=== PATIENT | female | born 1960 | race Caucasian/White ===

== ENCOUNTER 2023-01-22 02:51 | Outpatient (CLI) | payer OTHER, SELFPAY | END 2023-01-22 02:52 | disposition home or self-care (01) | LOC: AMB 01-24 05:16 | PROVIDERS: Visit Provider Family Medicine | DX: R55 Syncope and collapse (principal) | CPT/HCPCS: A0425; A0427 ==

== ENCOUNTER 2023-09-30 18:46 | Emergency (ER) | payer OTHER, SELFPAY ==
[2023-09-30] VITALS (7 sets, daily range): BP systolic 145–149; BP diastolic 76–88; PULSE 61–78; RESP 18; TEMP 36.9; O2SAT 96–99; BMI 20.2
--- NOTE | 2023-09-30 19:18 | XR_ITS ---
Patient: GRACIELA TRUJILLO Facility:?[facility] Patient ID:?[id number] Site Patient ID:?[id number]. Site :?[id number] Study:?XRay-Chest 2 views-09/30/2023 7:36:17 PM Ordering Physician:Elise Gomez Final Report: INDICATION: Cough TECHNIQUE: Chest 2 views COMPARISON: None FINDINGS: Cardiovascular and mediastinum: Heart size and vasculature are normal in caliber and appearance. Lungs and pleural spaces: Lungs are clear. No sign of infiltrate or mass. No sign of pleural effusion. No pneumothorax. Bones and soft tissues: No significant findings. IMPRESSION: No acute findings. Dictated by Kendall Botello MD @ 10/01/2023 7:01:11 AM Signed by:?Kendall Botello MD @10/01/2023 7:01:11 AM (Electronic Signature)
[2023-09-30 19:39] LABS: Basophils Absolute Auto 0.02 K/uL (0.00-0.30); Basophils Percent Auto 0.3 % (0.0-3.0); Eosinophils Absolute Auto 0.06 K/uL (0.00-0.50); Eosinophils Percent Auto 0.8 % (0.0-7.0); Hematocrit 39.9 % (33.0-51.0); Hemoglobin* 13.4 gm/dL (12.0-16.0); Immature Granulocytes Abs Auto 0.02 K/uL (0.00-0.30); Immature Granulocytes Pct Auto 0.3 %; Lymphocytes Percent Auto 19.1 % (20-44); Mean Corpuscular HGB Conc 34 gm/dL (32-36); Mean Corpuscular Hemoglobin 30 pg (26-34); Mean Corpuscular Volume 90 fL (80-100); Monocytes Percent Auto 4.9 % (0.0-11.0); Neutrophils Percent Auto 74.6 % (42.0-72.0); Platelet Count* 401 K/uL (140-440); RDW Coefficient of Variation % 11.7 % (11.5-15.5); Red Blood Count 4.45 m/uL (4.00-5.20); White Blood Count* 7.16 K/uL (4.50-11.00)
--- NOTE | 2023-09-30 19:44 | ED.GENADULT ---
HPI - General Adult General Date Seen: 09/30/23 Chief complaint: Nausea/Vomiting Stated complaint: feels faint Time Seen by Provider: 09/30/23 19:09 Source: patient Mode of arrival: ambulatory Limitations: no limitations History of Present Illness HPI narrative: Patient is a 62-year-old woman who presents for evaluation of palpitations and nausea. She says she was sick all last week with upper respiratory symptoms including cough. She did 3 COVID test at home all of which were negative. Symptoms improved and by Wednesday/Wednesday she says she felt pretty good. 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 Today however she says she was feeling nauseated again, she has a sensation that her heart is fluttering, this is something that she has had for a number of years and has had a Holter as well as an echo a few weeks ago and an EKG at her primary clinic. She reports these are all unrevealing. By the time she got to the ER, she vomited once, now she feels fine, denies any further nausea. Still has the fluttering sensation in her chest. She has a little bit of a persistent cough, she has not had a fever, denies chest pain. She has not had syncope. General health is good. She is concerned because her blood pressure which had previously always been 120 systolic more recently has been 130 systolic. She does not smoke or drink. Related Data Home Medications Medication Instructions Recorded Confirmed levothyroxine 50 mcg tablet 50 mcg PO QAM 01/22/23 01/22/23 Allergies Allergy/AdvReac Type Severity Reaction Status Date / Time No Known Drug Allergies Allergy Verified 09/30/23 19:00 Review of Systems Status of ROS: Reports: 10 or more systems reviewed and unremarkable except as noted in History and below [facility] Social History Smoking Status: Never smoker How often do you have a drink containing alcohol: never How often do you have six or more drinks on one occasion: Never AUDIT-C Alcohol total score: 0 Non-prescribed substance use: denies use Exam Narrative: Exam Narrative: Vital signs as noted above. In general, an alert, well-appearing patient. Very pleasant, conversant. Breathing easily. Head: Normocephalic, atraumatic. Eyes: Pupils are equal reactive. Extraocular movements are full. Conjunctivae are normal. ENT: Mucous membranes are moist. Neck: Supple without lymphadenopathy. Heart: Regular rate and rhythm. No murmur or rub. Lungs: Clear bilaterally. No increased work of breathing, crackles or wheezes. Abdomen: Soft and nontender. No organomegaly. Extremities: Well perfused. No edema. No calf tenderness. Pulses intact. Neurologic: Patient is alert and oriented to person and place. Speech is fluent. Face is symmetric. Moves all extremities equally. Affect: Normal. Skin: Warm and dry. Well perfused. Const: Vital Signs, click to edit/add: Vital Signs - 24 hr 09/30/23 18:55 09/30/23 19:46 09/30/23 19:52 Temperature 98.4 F Pulse Rate 61 Pulse Rate [Right Pulse Oximeter] 78 Respiratory Rate 18 Blood Pressure Blood Pressure [Ri ght Upper Arm] 145/88 H Pulse Oximetry 98 96 97 Oxygen Delivery Me thod Room Air 09/30/23 20:00 09/30/23 20:02 09/30/23 20:02 Temperature Pulse Rate 63 71 71 Pulse Rate [Right Pulse Oximeter] Respiratory Rate Blood Pressure 149/76 H 149/76 H Blood Pressure [Ri ght Upper Arm] Pulse Oximetry 97 96 96 Oxygen Delivery Me thod 09/30/23 20:15 09/30/23 20:30 Temperature Pulse Rate 64 72 Pulse Rate [Right Pulse Oximeter] Respiratory Rate Blood Pressure Blood Pressure [Ri ght Upper Arm] Pulse Oximetry 99 97 Oxygen Delivery Me thod Documenting provider has reviewed patient's vital signs: yes Course Course ED Course: EKG done here on her arrival here by my review shows a sinus rhythm, ventricular rate of 78. Corrected QT is 437 milliseconds. Normal VA interval. No acute ST segment changes, T-waves are unremarkable. She does have 1 PVC noted. Overall, her exam is unremarkable, vital signs aside from her blood pressure being slightly high for her at 145/88, are unremarkable. I do think it is reasonable to rule out complications of last week's presumable viral illness, a get a chest x-ray to look for pneumonia, labs to evaluate for electrolyte abnormalities, dehydration. Will have her on the monitor while here just to see if she is throwing more frequent PVCs and if those correlate with her symptoms of chest fluttering. Initial troponin is 0. I watched her for quite a while on the monitor, did not see any PVCs and in fact she denies having any of those fluttering symptoms while here. Her CBC is normal, like to lytes are all normal, BUN is 15, creatinine 0.7. Blood sugar 129, magnesium is 2, CRP is less than 0.5. TSH is 1.26. She is feeling well, no further vomiting or nausea. Etiology of her symptoms is somewhat unclear. I did not see pneumonia on her chest x-ray, and given that she is asymptomatic at this time, unclear whether she might have had some kind of arrhythmia at home that resolved prior to coming in, whether this is just residual post viral, vasovagal related to cough, etcetera. I think it is reasonable to let her go. Primary care follow-up as she is continuing to be concerned about her blood pressure, this can be followed with primary care. Consider outpatient cardiac monitoring as well. Return at any time for acute worsening. Vital Signs Vital signs: Initial Vital Signs Temperature 98.4 F 09/30/23 18:55 Temperature Source Temporal Artery Scan 09/30/23 18:55 Pulse Rate 78 09/30/23 18:55 Pulse Rhythm Regular 09/30/23 18:55 Pulse Strength 3+ Normal 09/30/23 18:55 Respiratory Rate 18 09/30/23 18:55 Blood Pressure 145/88 H 09/30/23 18:55 Blood Pressure Mean 107 H 09/30/23 18:55 Blood Pressure Position Sitting 09/30/23 18:55 Pulse Oximetry 98 09/30/23 18:55 Oxygen Delivery Method Room Air 09/30/23 18:55 Vital Signs Temperature 98.4 F 09/30/23 18:55 Pulse Rate 78 09/30/23 18:55 Respiratory Rate 18 09/30/23 18:55 Blood Pressure 145/88 H 09/30/23 18:55 Pulse Oximetry 98 09/30/23 18:55 Oxygen Delivery Method Room Air 09/30/23 18:55 Temperature 98.4 F 09/30/23 18:55 Pulse Rate 72 09/30/23 20:30 Respiratory Rate 18 09/30/23 18:55 Blood Pressure 149/76 H 09/30/23 20:02 Pulse Oximetry 97 09/30/23 20:30 Oxygen Delivery Method Room Air 09/30/23 18:55 Medical Decision Making Lab Data Labs: Lab Results 09/30/23 Range/Units 19:28 WBC 7.16 (4.50-11.00) K/uL RBC 4.45 (4.00-5.20) m/uL Hgb 13.4 (12.0-16.0) gm/dL Hct 39.9 (33.0-51.0) % MCV 90 (80-100) fL MCH 30 (26-34) pg MCHC 34 (32-36) gm/dL RDW Coeff of Vi 11.7 (11.5-15.5) % Plt Count 401 (140-440) K/uL Neut % (Auto) 74.6 H (42.0-72.0) % Lymph % (Auto) 19.1 L (20-44) % Kemper % (Auto) 4.9 (0.0-11.0) % Eos % (Auto) 0.8 (0.0-7.0) % Baso % (Auto) 0.3 (0.0-3.0) % Neut # (Auto) 5.30 (1.7-7.0) K/uL Lymph # (Auto) 1.40 (0.90-2.90) K/uL Kemper # (Auto) 0.40 (0.00-0.90) K/UL Eos # (Auto) 0.06 (0.00-0.50) K/uL Baso # (Auto) 0.02 (0.00-0.30) K/uL Abs Immat Gran (auto) 0.02 (0.00-0.30) K/uL Imm/Tot Granulo (auto) 0.3 % Sodium 137 (135-149) mmol/L Potassium 3.9 (3.6-5.1) mmol/L Chloride 100 (96-114) mmol/L Carbon Dioxide 31 (20-32) mmol/L Anion Gap 6 L (7-15) mEq/L BUN 15 (7-30) mg/dL Creatinine 0.7 (0.5-1.5) mg/dL Estimated Creat Clear 54.57 Estimated GFR 98 ml/min Glucose 129 H (60-115) mg/dL Calcium 9.3 (8.4-10.6) mg/dL Magnesium 2.0 (1.5-2.6) mg/dL C-Reactive Protein < 0.5 L (0.5-1.0) mg/dL TSH 1.260 (0.270-4.200) uIU/mL POC Troponin I 0.00 L (0.01-0.04) ng/ml Discharge Plan Discharge Clinical Impression: Palpitations, Nausea Patient Disposition: Home, Self-Care Condition: Improved Instructions: Heart Palpitations (DC), Acute Nausea and Vomiting (DC) Additional Instructions: Recommend follow-up with your primary doctor to discuss blood pressure, possible cardiac monitoring. Return for recurrent or worsening symptoms. Prescriptions: No Action levothyroxine 50 mcg tablet 50 mcg PO QAM Follow Up/Referrals: Provider,Not a Local [Primary Care Provider] - Stand Alone Forms: MyHealth Info Instructions
[2023-09-30 19:57] LABS: Slide Review Reflex No
[2023-09-30 19:58] LABS: Chloride* 100 mmol/L (96-114); Potassium* 3.9 mmol/L (3.6-5.1); Sodium* 137 mmol/L (135-149)
[2023-09-30 20:00] LABS: Creatinine* 0.7 mg/dL (0.5-1.5); Est. Creatinine Clearance* 54.57; Estimated Glomerular Filt Rate 98 ml/min
[2023-09-30 20:01] LABS: Anion Gap 6 mEq/L (7-15); Blood Urea Nitrogen* 15 mg/dL (7-30); Carbon Dioxide* 31 mmol/L (20-32)
[2023-09-30 20:02] LABS: Calcium* 9.3 mg/dL (8.4-10.6); Glucose* 129 mg/dL (60-115)
[2023-09-30 20:07] LABS: C Reactive Protein* < 0.5 mg/dL (0.5-1.0)
== END 2023-09-30 21:15 | disposition home or self-care (01) ==
PROVIDERS: Emergency Provider Emergency Medicine
DX: R11.0 Nausea (principal); R00.2 Palpitations
CPT/HCPCS: 36415; 71046; 80048; 83735; 84443; 84484; 85025; 86140; 93005; 94761; 99284